=== PATIENT | female | born 1980 | race Caucasian/White ===

== ENCOUNTER 2017-09-15 05:46 | Inpatient (IN) | payer OTHER ==
[~2017-09-15] VITALS: Ht 154.9 cm; Wt 69.4 kg
[2017-09-15 06:26] LABS: ABSOLUTE BASOPHIL COUNT 0.1 /CUMM (0.0-0.2); ABSOLUTE EOSINOPHIL COUNT 0.2 /CUMM (0.0-0.7); ABSOLUTE GRANULOCYTE CT 6.1 /CUMM (1.4-6.5); ABSOLUTE LYMPH COUNT 2.7 /CUMM (1.2-3.4); ABSOLUTE MONOCYTE COUNT 0.6 /CUMM (0.10-0.60); BASOPHIL % 0.9 % (0.0-2.0); EOSINOPHIL % 1.6 % (0-5); GRANULOCYTE % 62.9 % (42.2-75.2); HEMATOCRIT 38.7 % (37-47); MEAN CORPUSCULAR HGB 28.1 PG (27.0-31.0); MEAN CORPUSCULAR HGB CONC 32.5 G/DL (33.0-37.0); MEAN CORPUSCULAR VOLUME 86.6 FL (81.0-99.0); MEAN PLATELET VOLUME 9.1 FL (7.4-10.4); PLATELET COUNT 242 /CUMM (130-400); RBC DISTRIBUTION WIDTH 13.6 % (11.5-14.5); RED BLOOD CELL CT 4.47 /CUMM (4.20-5.40); WHITE BLOOD CELL COUNT 9.6 /CUMM (4.8-10.8)
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
[2017-09-16 06:01] LABS: ABSOLUTE BASOPHIL COUNT 0 /CUMM (0.0-0.2); ABSOLUTE EOSINOPHIL COUNT 0.2 /CUMM (0.0-0.7); ABSOLUTE GRANULOCYTE CT 5.7 /CUMM (1.4-6.5); ABSOLUTE LYMPH COUNT 3.2 /CUMM (1.2-3.4); ABSOLUTE MONOCYTE COUNT 0.7 /CUMM (0.10-0.60); BASOPHIL % 0.4 % (0.0-2.0); EOSINOPHIL % 1.8 % (0-5); GRANULOCYTE % 58.2 % (42.2-75.2); MEAN CORPUSCULAR HGB 28.2 PG (27.0-31.0); MEAN CORPUSCULAR HGB CONC 32.4 G/DL (33.0-37.0); MEAN CORPUSCULAR VOLUME 87.1 FL (81.0-99.0); MEAN PLATELET VOLUME 8.5 FL (7.4-10.4); PLATELET COUNT 237 /CUMM (130-400); RBC DISTRIBUTION WIDTH 13.4 % (11.5-14.5); RED BLOOD CELL CT 3.75 /CUMM (4.20-5.40); WHITE BLOOD CELL COUNT 9.7 /CUMM (4.8-10.8)
[2017-09-16 06:21] LABS: HEMATOCRIT 32.7 % (37-47)
--- NOTE | 2017-09-16 13:18 | Labor & Delivery Summary ---
Delivery Summary Vaginal Delivery: Vaginal: spontaneous Episiotomy/Lacerations: Episiotomy/Lacerations: 1st deg lac Repair: 2-0 delores Anesthesia: nesacaine Placenta: Placenta: spontanteous, normal, 3 vessel Anesthesia: none Apgars - 1 Min: 9 Apgars - 5 Min: 9 Additional Comments: uncomplicated of live male, apg 9 /, 3vc plac del spont intact. 1st deg lac repaired. ebl 300cc. pt rebecca well. fundus contracted.
--- NOTE | 2017-09-16 13:54 | PN- OBGYN ---
Surgical Brief Attending Note Brief Attending Note: pt feeling better. pain well controlled w/ motrin. amb / void / rebecca po. +bf. afeb, v/ss nad abd soft nt ff sandra min lochia ext nt no ed hct 36-->32 a/p ppd 1 s/p , doing well -routine pp care
--- NOTE | 2017-09-17 09:03 | PN- Post Delivery/GYN ---
Subjective Subjective: feeling well Review of Systems Constitutional: Reports: no symptoms. EENTM: Denies: blurred vision, double vision, visual changes. Cardiovascular: Denies: chest pain, edema. Respiratory: Denies: cough. Neurological/Psychological: Denies: anxiety, depressed. Objective Last 24 Hrs of Vital Signs/I&O vss Physical Exam General Appearance Alert, Oriented X3, Cooperative, No Acute Distress Cardiovascular Regular Rate Lungs Clear to Auscultation Abdomen Normal Bowel Sounds, Soft, No Tenderness, fundus firm Current Medications: Current Medications Sig/Teodoro Start time Last Medication Dose Route Stop Time Status Admin Acetaminophen 650 MG Q4P PRN 09/15 0800 AC PO Docusate Sodium 100 MG .STK-MED ONE 09/16 1957 DC PO 09/16 1958 Docusate Sodium 100 MG BID PRN 09/15 0800 AC 09/16 PO 2000 Ibuprofen 800 MG .STK-MED ONE 09/16 1704 DC PO 09/16 1705 Ibuprofen 800 MG .STK-MED ONE 09/16 0949 DC PO 09/16 0950 Ibuprofen 800 MG Q6P PRN 09/15 0800 AC 09/17 PO 0108 Lactated Ringer's 1,000 ML Q8H 09/15 0615 AC IV Assessment/Plan Assessment/Plan PPD #2 vss afebrile plab d/c home today Problem List: 1. Attending MD Review Statement Attending Statement Attending MD Statement: examined this patient, discussed with nursing
[2017-09-17] MEDS ORDERED: IBUPROFEN800 M1 PO (09:04)
== END 2017-09-17 10:32 | DRG 775 ==
LOC: CBCO 05:46 → GNO 06:02
PROVIDERS: Obstetrics & Gynecology
PROC: 0HQ9XZZ Repair Perineum Skin, External Approach (ICD-10-PCS; principal; 2017-09-15)
PROC: 10E0XZZ Delivery of Products of Conception, External Approach (ICD-10-PCS; principal; 2017-09-15)
DX: O70.0 First degree perineal laceration during delivery (principal); E03.9 Hypothyroidism, unspecified; O99.824 Streptococcus B carrier state complicating childbirth; Z37.0 Single live birth; Z3A.40 40 weeks gestation of pregnancy; O99.284 Endocrine, nutritional and metabolic diseases complicating childbirth
CPT/HCPCS: GNOS; 81003; J7120